=== PATIENT | male | born 1990 | race Caucasian/White ===

== ENCOUNTER 2018-07-29 02:55 | Emergency (ER) | payer OTHER ==
[~2018-07-29] VITALS: Ht 170.2 cm; Wt 80.8 kg
[~2018-07-29 02:55] MED LIST: CEFD300C3 PO; IBUP-1773 PO
[2018-07-29 03:14] LABS: BILIRUBIN,URINE NEGATIVE (NEGATIVE); CLARITY,URINE SLIGHTLY CLOUDY; COLOR,URINE YELLOW; GLUCOSE, URINE (UA) NEGATIVE (NEGATIVE); KETONES,URINE NEGATIVE (NEGATIVE); LEUKOCYTE ESTERASE ,URINE NEGATIVE (NEGATIVE); NITRITE,URINE NEGATIVE (NEGATIVE); PH,URINE 5 (5-9); PROTEIN,URINE 2+ (NEGATIVE); UROBILINOGEN,URINE NORMAL (NORMAL)
--- NOTE | 2018-07-29 03:19 | ED GU-Male ---
General Chief Complaint: Back Problems Stated Complaint: LOWER BACK PAIN LEFT SIDE Nursing Triage Note: LEFT FLANK PAIN. Source: patient Exam Limitations: no limitations History of Present Illness Date Seen by Provider: Jul 29, 2018 Time Seen by Provider: 03:04 Initial Comments Here with report of left flank pain that woke him up about 2:20 AM. Pain was moderate to significant in intensity and aching and he had an episode of vomiting with that. He then took 3 wmho-ihy-msshhmk ibuprofen tablets and came to the emergency department. He did note some pinkish colored urine at that time. Here he states the pain is actually getting a little better and the nausea is resolving. Never had anything like this before. Denies diarrhea or constipation. Denies fever or chills otherwise. Timing/Duration: just prior to arrival Severity/Quality: moderate, severe, aching Location: left flank Radiation: none Activities at Onset: sleep Prior Genitourinary Problems: none Modifying Factors: Improves With Resting Associated Symptoms: No abdominal pain, No dysuria, No fever/chills, No loss of bladder control; lower back pain, nausea/vomiting; No urinary frequency Allergies and Home Medications Allergies Coded Allergies: amoxicillin (Verified Allergy, Unknown, 10/14/15) Home Medications Ciprofloxacin HCl 500 Mg Tablet, 500 MG PO BID Prescribed by: SREE HOLDEN on 07/29/18456 Hydrocodone Bit/Acetaminophen 1 Tab Tab, 1 EACH PO Q4-6HR PRN for PAIN-MODERATE Prescribed by: SREE HOLDEN on 07/29/18456 Patient Home Medication List Home Medication List Reviewed: Yes Review of Systems Review of Systems Constitutional: see HPI; No chills, No fever EENTM: no symptoms reported Respiratory: no symptoms reported Cardiovascular: no symptoms reported Gastrointestinal: see HPI Genitourinary: see HPI, flank pain, hematuria Musculoskeletal: back pain; No muscle pain Skin: no symptoms reported Psychiatric/Neurological: No Symptoms Reported Past Gckaikx-Xnclov-Cyxjcm Hx Past Med/Social Hx: Reviewed Nursing Past Med/Soc Hx Patient Social History Alcohol Use: Rarely Uses Recreational Drug Use: No Smoking Status: Never a Smoker 2nd Hand Smoke Exposure: No Recent Foreign Travel: No Contact w/Someone Who Travel: No Recent Infectious Disease Expo: No Recent Hopitalizations: No Immunizations Up To Date Tetanus Booster (TDap): Less than 5yrs PED Vaccines UTD: No Seasonal Allergies Seasonal Allergies: No Past Medical History Surgeries: Yes Adenoidectomy, Tonsillectomy Respiratory: No Currently Using CPAP: No Currently Using BIPAP: No Cardiac: No Neurological: No Reproductive Disorders: No Sexually Transmitted Disease: No HIV/AIDS: No Genitourinary: No Gastrointestinal: No Musculoskeletal: No Endocrine: No HEENT: No Tonsilitis Loss of Vision: Denies Hearing Impairment: Denies Cancer: No Psychosocial: No Integumentary: No Blood Disorders: No Adverse Reaction/Blood Tranf: No Family Medical History Reviewed Nursing Family Hx Physical Exam Vital Signs Vital Signs - First Documented 07/29/18 03:01 Temp 98.9 Pulse 86 Resp 16 B/P (MAP) 139/86 (103) Pulse Ox 100 O2 Delivery Room Air Capillary Refill : Less Than 3 Seconds Height, Weight, BMI Height: 5'7.00" Weight: 178lbs. 1.0oz. [id number]; 23.5 BMI Method:Stated General Appearance: WD/WN, mild distress HEENT: PERRL/EOMI, pharynx normal Neck: full range of motion, supple Cardiovascular: regular rate, rhythm, no murmur Respiratory: lungs clear, normal breath sounds Gastrointestinal: non tender, soft Back: normal inspection, no CVA tenderness, no vertebral tenderness Extremities: non-tender, normal inspection Neurologic/Psychiatric: alert, oriented x 3 Skin: normal color, warm/dry Progress/Results/Core Measures Suspected Sepsis Recent Fever Within 48 Hours: No Infection Criteria Present: None New/Unexplained Altered Menta: No Sepsis Screen: No Definite Risk SIRS Temperature:98.9 Pulse: 86 Respiratory Rate: 16 Laboratory Tests 07/29/18 04:09: White Blood Count 7.8 Blood Pressure 139 /86 Mean: 103 Laboratory Tests 07/29/18 04:09: Creatinine 1.21, Platelet Count 257, Total Bilirubin 0.7 Results/Orders Lab Results Laboratory Tests Test 07/29/18 03:05 07/29/18 04:09 Range/Units Urine Color YELLOW Urine Clarity SLIGHTLY CLOUDY Urine pH 5 5-9 Urine Specific Dubberly 1.025 H 1.016-1.022 Urine Protein 2+ H NEGATIVE Urine Glucose (UA) NEGATIVE NEGATIVE Urine Ketones NEGATIVE NEGATIVE Urine Nitrite NEGATIVE NEGATIVE Urine Bilirubin NEGATIVE NEGATIVE Urine Urobilinogen NORMAL NORMAL MG/DL Urine Leukocyte Esterase NEGATIVE NEGATIVE Urine RBC (Auto) 5+ H NEGATIVE Urine RBC >100 H /HPF Urine WBC NONE /HPF Urine Squamous Epithelial Cells 2-5 /HPF Urine Crystals NONE /LPF Urine Bacteria NEGATIVE /HPF Urine Casts NONE /LPF Urine Mucus NEGATIVE /LPF Urine Culture Indicated NO White Blood Count 7.8 4.3-11.0 10^3/uL Red Blood Count 4.87 4.35-5.85 10^6/uL Hemoglobin 14.3 13.3-17.7 G/DL Hematocrit 42 40-54 % Mean Corpuscular Volume 87 80-99 FL Mean Corpuscular Hemoglobin 29 25-34 PG Mean Corpuscular Hemoglobin Concent 34 32-36 G/DL Red Cell Distribution Width 12.8 10.0-14.5 % Platelet Count 257 130-400 10^3/uL Mean Platelet Volume 10.4 7.4-10.4 FL Neutrophils (%) (Auto) 68 42-75 % Lymphocytes (%) (Auto) 22 12-44 % Monocytes (%) (Auto) 8 0-12 % Eosinophils (%) (Auto) 2 0-10 % Basophils (%) (Auto) 1 0-10 % Neutrophils # (Auto) 5.3 1.8-7.8 X 10^3 Lymphocytes # (Auto) 1.7 1.0-4.0 X 10^3 Monocytes # (Auto) 0.6 0.0-1.0 X 10^3 Eosinophils # (Auto) 0.2 0.0-0.3 10^3/uL Basophils # (Auto) 0.1 0.0-0.1 10^3/uL Sodium Level 138 135-145 MMOL/L Potassium Level 4.1 3.6-5.0 MMOL/L Chloride Level 106 98-107 MMOL/L Carbon Dioxide Level 21 21-32 MMOL/L Anion Gap 11 5-14 MMOL/L Blood Urea Nitrogen 15 7-18 MG/DL Creatinine 1.21 0.60-1.30 MG/DL Estimat Glomerular Filtration Rate > 60 BUN/Creatinine Ratio 12 Glucose Level 107 H 70-105 MG/DL Calcium Level 9.7 8.5-10.1 MG/DL Corrected Calcium 8.5-10.1 MG/DL Total Bilirubin 0.7 0.1-1.0 MG/DL Aspartate Amino Transf (AST/SGOT) 29 5-34 U/L Alanine Aminotransferase (ALT/SGPT) 60 H 0-55 U/L Alkaline Phosphatase 96 40-136 U/L Total Protein 7.4 6.4-8.2 GM/DL Albumin 4.6 H 3.2-4.5 GM/DL My Orders Orders - SREE HOLDEN MD Ua Culture If Indicated (07/29/18 03:08) Ct Abd/Pelvis Wo(Kidney Stone) (07/29/18 03:31) Cbc With Automated Diff (07/29/18 04:03) Comprehensive Metabolic Panel (07/29/18 04:03) Rx-Hydrocodone/Apap 5-325 Mg (Rx-Vicodin (07/29/18 04:45) Medications Given in ED Current Medications Medications Dose Ordered Sig/Becca Route Start Time Stop Time Status Last Admin Dose Admin Acetaminophen/ Hydrocodone Bitart 1 ea Q6H PRN PO 07/29/18 04:45 07/29/18 04:53 1 EA Vital Signs/I&O 07/29/18 03:01 Temp 98.9 Pulse 86 Resp 16 B/P (MAP) 139/86 (103) Pulse Ox 100 O2 Delivery Room Air Capillary Refill : Less Than 3 Seconds Blood Pressure Mean: 103 Progress Note : Progress Note Seen and evaluated. We will check UA first and then determine further evaluation based on those results. Patient agrees with this and is feeling a little better right now. Monitor patient. UA was positive for blood so CT abdomen and pelvis kidney stone protocol ordered as well as labs. 0452: Patient' s pain is essentially gone now without any medicines from here. CT does show 4 mm stone in the left proximal ureter with hydronephrosis. I did discuss this with the patient. He understands that he will need to drink plenty of fluids and we discussed pain medicine options as well as the need to follow-up with Dr. Galdamez Monday. He will call his office Monday morning for appointment. Discharged home with return precautions. Patient verbalize understanding instructions and agreement with plan. Go pack given for hydrocodone. Diagnostic Imaging Diagonstic Imaging: CT Plain Films/CT/US/NM/MRI: abdomen, pelvis Comments There is a 3 mm stone lodged at the left UPJ with mild left hydronephrosis. No significant perinephric stranding. Hepatic steatosis. 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 Departure Impression Primary Impression: Left ureteral stone Additional Impression: Hydronephrosis, left Disposition: 01 HOME, SELF-CARE Condition: Against Medical Advice Departure-Patient Inst. Decision time for Depature: 04:58 Referrals: MARICHUY CASTRO MD (PCP/Family) Primary Care Physician TERRY GADLAMEZ MD Patient Instructions: How to Strain Your Urine, Hydronephrosis, Adult (DC), Kidney Stones (DC) Add. Discharge Instructions: All discharge instructions reviewed with patient and/or family. Voiced understanding. Drink plenty of fluids. You may take Tylenol/acetaminophen 1000 mg every 8 hours as needed for pain but do not take if you're taking the prescribed pain medicine as they both have acetaminophen in them. You may take ibuprofen 800 mg every 8 hours as needed for pain. Take other medications as directed. Call Dr. Galdamez's office first thing Monday morning for appointment. Return for worse pain , vomiting, weakness, inability to urinate or other concerns as needed. Scripts Hydrocodone Bit/Acetaminophen (Hydrocodone/Acetaminophen 5/325mg Tablet) 1 Tab Tab 1 EACH PO Q4-6HR PRN for PAIN-MODERATE MDD 10, #10 TAB Prov: SREE HOLDEN MD 07/29/18 Ciprofloxacin HCl (Ciprofloxacin HCl) 500 Mg Tablet 500 MG PO BID, #14 TAB Prov: SREE HOLDEN MD 07/29/18 Copy Copies To 1: TERRY GALDAMEZ MD, TIMOTHY D MD Jul 29, 2018 03:19
[2018-07-29 03:22] LABS: BACTERIA,URINE NEGATIVE /HPF; RBC,URINE >100 /HPF
[2018-07-29 04:17] LABS: BASOPHILS # (AUTO) 0.1 10^3/uL (0.0-0.1); BASOPHILS % (AUTO) 1 % (0-10); EOSINOPHILS # (AUTO) 0.2 10^3/uL (0.0-0.3); EOSINOPHILS % (AUTO) 2 % (0-10); HEMATOCRIT 42 % (40-54); HEMOGLOBIN 14.3 G/DL (13.3-17.7); LYMPHOCYTES # (AUTO) 1.7 X 10^3 (1.0-4.0); LYMPHOCYTES % (AUTO) 22 % (12-44); MEAN CORPUSCULAR HEMOGLOBIN 29 PG (25-34); MEAN CORPUSCULAR HGB CONC 34 G/DL (32-36); MEAN CORPUSCULAR VOLUME 87 FL (80-99); MEAN PLATELET VOLUME 10.4 FL (7.4-10.4); MONOCYTES # (AUTO) 0.6 X 10^3 (0.0-1.0); MONOCYTES % (AUTO) 8 % (0-12); NEUTROPHILS # (AUTO) 5.3 X 10^3 (1.8-7.8); NEUTROPHILS % (AUTO) 68 % (42-75); PLATELET COUNT 257 10^3/uL (130-400); RED CELL DISTRIBUTION WIDTH 12.8 % (10.0-14.5); WHITE BLOOD COUNT 7.8 10^3/uL (4.3-11.0)
[2018-07-29 04:43] LABS: ALANINE AMINOTRANSFERASE 60 U/L (0-55); ALBUMIN 4.6 GM/DL (3.2-4.5); ALKALINE PHOSPHATASE 96 U/L (40-136); BILIRUBIN,TOTAL 0.7 MG/DL (0.1-1.0); BUN/CREATININE RATIO 12; CALCIUM 9.7 MG/DL (8.5-10.1); CARBON DIOXIDE 21 MMOL/L (21-32); CHLORIDE 106 MMOL/L (98-107); CREATININE SERUM 1.21 MG/DL (0.60-1.30); GFR ESTIMATED > 60; GLUCOSE 107 MG/DL (70-105); POTASSIUM 4.1 MMOL/L (3.6-5.0); SODIUM 138 MMOL/L (135-145); TOTAL PROTEIN 7.4 GM/DL (6.4-8.2)
[2018-07-29] MEDS ORDERED: RX-HYDROCODONE/APAP 5/325 MG #4 TAB PK PO PRN (04:45)
[2018-07-29] MEDS ORDERED: CIPR500T4 PO (04:57)
[2018-07-29] MEDS ORDERED: ACHD5005 PO (04:57)
[2018-07-29 05:00] VITALS: BP 141/95
--- NOTE | 2018-07-29 07:57 | Diagnostic Imaging Report ---
PROCEDURE: CT urinary tract, rule out kidney stone. TECHNIQUE: Multiple contiguous axial images were obtained through the abdomen and pelvis without the use of intravenous contrast. Auto Exposure Controls were utilized during the CT exam to meet ALARA standards for radiation dose reduction. INDICATION: Abdominal pain. COMPARISON: None. FINDINGS: Lung bases are clear. A 3 mm renal stone in the left ureteropelvic junction resulting in mild left hydronephrosis. There are also a few nonobstructing calyceal tip renal stones in the right kidney measuring up to 0.4 cm. No right hydronephrosis. Lung bases are clear. Mild fatty infiltration of the liver. The gallbladder, pancreas, spleen, adrenals, bladder and appendix are negative. No free intraperitoneal air or fluid. No lymphadenopathy. No evidence of bowel obstruction. Nonspecific shawn mesentery centrally. No acute osseous findings. IMPRESSION: 1. A 3 mm renal stone in the left ureteropelvic junction resulting in mild left hydronephrosis. 2. Mild hepatic steatosis. 3. Nonspecific "shawn mesentery." Dictated by: Dictated on workstation # [id number]
== END 2018-07-29 05:04 | disposition home or self-care (01) ==
LOC: EDUNIT# 02:55 → ER 02:57
DX: N13.2 Hydronephrosis with renal and ureteral calculous obstruction (principal); Z88.0 Allergy status to penicillin; Z90.89 Acquired absence of other organs
CPT/HCPCS: 36415; 74176; 80053; 81000; 85025

== ENCOUNTER 2018-07-30 14:21 | Outpatient (CLI) | payer OTHER ==
[~2018-07-30] VITALS: Ht 170.2 cm; Wt 80.7 kg
[~2018-07-30 14:21] MED LIST changes: -HYDR-3812 PO; -TAMS0.4C98 PO
== END 2018-07-30 14:39 | disposition home or self-care (01) ==
LOC: PREOP 14:21
PROVIDERS: ATTEND Urology
DX: Z01.818 Encounter for other preprocedural examination (principal)

== ENCOUNTER → 2018-07-30 | Outpatient (CLI) | payer OTHER ==
[~2018-07-30] MED LIST changes: +ACHD5005 PO; +CIPR500T4 PO; +HYDR-3812 PO; +TAMS0.4C98 PO
--- NOTE | 2018-07-30 12:54 | Diagnostic Imaging Report ---
INDICATION: Nephrolithiasis. EXAMINATION: KUB at 12:04 PM. FINDINGS: There is a 2 mm calcification projected over the lower pole of the left kidney. The right kidney is largely obscured by fecal material in the colon. There are no pathologic calcifications seen in the region of the bladder or ureteral distribution. IMPRESSION: Left nephrolithiasis. The right kidney is obscured by gas and fecal material in the GI tract. Dictated by: Dictated on workstation # [id number]
== END ==
LOC: RAD 11:54
PROVIDERS: ATTEND Urology
DX: N20.2 Calculus of kidney with calculus of ureter (principal)
CPT/HCPCS: 74018

== ENCOUNTER 2018-08-01 06:16 | Day surgery (SDC) | payer OTHER ==
[2018-08-01] VITALS (9 sets, daily range): BP systolic 124–151; BP diastolic 68–92
[~2018-08-01] VITALS: Ht 170.2 cm; Wt 81.6 kg
[2018-08-01] MEDS ORDERED: LACTATED RINGERS 1,000 ML IV PRN (06:48)
[2018-08-01] MEDS ORDERED: CATHETER FLUSH 10 ML SYR IV PRN (07:00)
[2018-08-01] MEDS ORDERED: cefTRIAXone FOR IV USE 1,000 MG in WATER (STERILE) FOR INJECTION 10 ML IV ONE (07:00)
--- NOTE | 2018-08-01 07:05 | Progress Note-Pre Operative ---
Pre-Operative Progress Note H&P Reviewed The H&P was reviewed, patient examined and no changes noted. Date Seen by Provider: Aug 01, 2018 Time Seen by Provider: 07:04 Date H&P Reviewed: Aug 01, 2018 Time H&P Reviewed: 07:04 Pre-Operative Diagnosis: LT RENAL STONE TERRY GALDAMEZ MD Aug 01, 2018 07:05
[2018-08-01] MEDS ORDERED: fentaNYL INJECTION 100 MCG/2 ML AMP ONE (07:43)
[2018-08-01] MEDS ORDERED: MIDAZOLAM 2 MG/2 ML (VERSED) VIAL ONE (07:43)
--- NOTE | 2018-08-01 08:19 | Diagnostic Imaging Report ---
Indication: Nephrolithiasis. Comparison made with prior examination from 07/30/2018. Findings: Bowel gas pattern is nonspecific. The previously seen stone in the left kidney is not appreciated on today's exam. Impression: No definitive evidence of nephrolithiasis. Dictated by: Dictated on workstation # [id number]
[2018-08-01] MEDS ORDERED: proPOfol 200 MG/20 ML (DIPRIVAN) VIAL IV ONE (10:12)
[2018-08-01] MEDS ORDERED: LIDOCAINE PF 2% 5 ML (XYLOCAINE) VIAL ONE (10:12)
[2018-08-01] MEDS ORDERED: FUROSEMIDE 40 MG/4 ML INJ (LASIX) ONE (10:31)
[2018-08-01] MEDS ORDERED: ONDANSETRON 4 MG/2 ML (SDV) Z0FRAN ONE (10:31)
[2018-08-01] MEDS ORDERED: KETOROLAC 30 MG/ML VIAL ONE (10:31)
[2018-08-01] MEDS ORDERED: DEXAMETHASONE 10 MG/ML (DECADRON) 1 ML VIAL ONE (10:31)
--- NOTE | 2018-08-01 10:32 | Progress Note-Post Operative ---
Post-Operative Progess Note Surgeon (s)/Assistant Operator (s) Surgeon TERRY GALDAMEZ MD Assistant Operator: NONE Pre-Operative Diagnosis LT RENAL STONE Post-Operative Diagnosis SAME Procedure & Operative Findings Date of Procedure 08/01/18 Procedure Performed/Findings LT ESWL Anesthesia Type GENERAL Estimated Blood Loss Estimated blood loss (mL): NONE Specimens/Packing Specimens Removed NONE Packing: NONE TERRY GALDAMEZ MD Aug 01, 2018 10:32
[2018-08-01] MEDS ORDERED: SEVOFLURANE (ULTANE) 15 ML INHAL SOLN ONE (10:33)
--- NOTE | 2018-08-01 10:34 | Discharge Inst-Urology ---
Discharge Inst-Urology Discharge Medications New, Converted, or Re-newed RX: RX on Chart Patient Instructions/Follow Up Plan Please make appointment to been seen in office in 4 weeks. KUB prior to it KUB on way home Post ESWL instructions Increase oral fluids for 48 hours and then as needed. Diet and Activity as tolerated. If questions or concerns contact your physician Or seek help at emergency department. TERRY GALDAMEZ MD Aug 01, 2018 10:34
[2018-08-01] MEDS ORDERED: TAMS0.4C98 PO (11:47)
[2018-08-01] MEDS ORDERED: HYDR-3812 PO (11:47)
--- NOTE | 2018-08-01 12:29 | Diagnostic Imaging Report ---
INDICATION: Status post ESWL. COMPARISON: CT dated 07/29/2018. FINDINGS: No definite abnormal extraosseous calcifications are seen on today's exam. No unexpected radiopaque foreign bodies are identified. Small bowel loops are nondistended. There is no large collection of free intraperitoneal air. Bony structures show no gross acute abnormalities. IMPRESSION: 1. No definite abnormal extraosseous calcifications. Dictated by: Dictated on workstation # [id number]
--- NOTE | 2018-08-01 13:34 | OPERATIVE REPORT ---
DATE OF SERVICE: 08/01/2018 PREOPERATIVE DIAGNOSIS: Left renal stone. POSTOPERATIVE DIAGNOSIS: Left renal stone. OPERATION PERFORMED: DICTATION ENDS HERE Job ID: [id number] DocumentID: [id number] Dictated Date: 08/01/2018 10:36:51 Department Clinician Date: 08/01/2018 13:33:40 Dictated By: TERRY GALDAMEZ MD
--- NOTE | 2018-08-01 13:36 | OPERATIVE REPORT ---
DATE OF SERVICE: 08/01/2018 PREOPERATIVE DIAGNOSIS: Left renal stone. POSTOPERATIVE DIAGNOSIS: Left renal stone. OPERATION PERFORMED: Left ESWL. SURGEON: Todd Galdamez MD ANESTHESIA: General. COMPLICATIONS: None. DESCRIPTION OF PROCEDURE: Under satisfactory general anesthesia, the patient in supine position on the ESWL table, the left renal stone was localized with some difficulty because of its size and bowel and gas. We delivered 1200 shocks at kV of 4 and we could not visualize the stone anymore. The patient received 40 mg of Lasix and 30 mg of Toradol IV at the end of the procedure and tolerated the procedure and anesthesia well and was sent to recovery room in stable condition. Job ID: [id number] DocumentID: [id number] Dictated Date: 08/01/2018 10:38:41 Cardroom Attendant Date: 08/01/2018 13:36:06 Dictated By: TODD GALDAMEZ MD
--- NOTE | 2018-08-01 13:38 | Anesthesia-General Post-Op ---
General Patient Condition Mental Status/LOC: Same as Preop Cardiovascular: Satisfactory Nausea/Vomiting: Absent Respiratory: Satisfactory Pain: Controlled Complications: Absent Post Op Complications Complications None Follow Up Care/Instructions Patient Instructions None needed. Anesthesia/Patient Condition Patient Condition Patient is doing well, no complaints, stable vital signs, no apparent adverse anesthesia problems. No complications reported per nursing. JAQUAN HOOKS CRNA Aug 01, 2018 13:38
== END 2018-08-01 12:25 | disposition home or self-care (01) ==
LOC: SDC 06:16
PROVIDERS: ATTEND Urology
DX: N20.0 Calculus of kidney (principal); Z11.2 Encounter for screening for other bacterial diseases; Z88.0 Allergy status to penicillin
CPT/HCPCS: 74018; 87081

== ENCOUNTER → 2018-08-15 | Outpatient (CLI) | payer OTHER ==
[~2018-08-15] MED LIST changes: +HYDR-3812 PO; +TAMS0.4C98 PO
--- NOTE | 2018-08-15 08:52 | Diagnostic Imaging Report ---
INDICATION: History of kidney stones. Status post ESWL. COMPARISON: 07/29/2018 FINDINGS: Single supine radiographic view of the abdomen was obtained. There may be small punctate calculus projecting over the inferior pole of the left kidney. Patient's known punctate right renal calculi cannot be identified, but may be obscured by overlying colonic air and stool. No other unexpected extraosseous calcifications or radiopaque foreign bodies are seen. Small bowel loops are nondistended. There is no large collection of free intraperitoneal air. Bony structures show no gross acute abnormalities. IMPRESSION: 1. Redemonstration of left-sided nephrolithiasis. 2. Patient's known ureteral calculus cannot be identified and may be on the basis of interval passage. 3. Patient's known right renal calculi cannot be identified, but may be obscured by overlying colonic air and stool. Dictated by: Dictated on workstation # [id number]
== END ==
LOC: RAD 08:11
PROVIDERS: ATTEND Urology
DX: N20.0 Calculus of kidney (principal); Z98.890 Other specified postprocedural states
CPT/HCPCS: 74018